=== PATIENT | male | born 1955 | race Caucasian/White ===

== ENCOUNTER 2019-06-19 21:32 | Observation (INO) ==
--- NOTE | 2019-06-19 21:40 | Emergency Department Note ---
Disposition Clinical Impression: Vertigo BPPV (benign paroxysmal positional vertigo) Qualifiers: Laterality: bilateral Qualified Code(s): H81.13 - Benign paroxysmal vertigo, bilateral Disposition: Admitted As Inpatient Instructions: Benign Paroxysmal Positional Vertigo (ED) Referrals: Crispin Fair MD [Primary Care Provider] - Time of Disposition: 00:55 General Adult HPI - General Stated complaint: dizziness Time Seen by Provider: 06/19/19 21:34 Source: patient Mode of arrival: private vehicle Limitations: no limitations Nursing Notes Reviewed: Yes Vital Signs Reviewed: Yes - History of Present Illness HPI Narrative: Patient is a 63-year-old male with a past medical history of arthritis presenting with a chief complaint of dizziness since this afternoon. The patient states 20 years ago, he had vertigo. He has not been on any current medications for vertigo. He states this afternoon, he stood up and went to ambulate when he all of a sudden felt dizzy. He states that the room is spinning. Moving his head to the right or left worsens the dizziness. He states when he lays down and closes his eyes, the dizziness improves. He states that the dizziness is progressively getting worse throughout the day. For the last several hours, he complains of nausea and several episodes of nonbilious nonbloody emesis. He states he feels like he cannot ambulate secondary to the dizziness. He denies any vision changes, headaches, chest pain, shortness of breath, abdominal pain, recent illnesses, unilateral weakness or numbness. - Related Data Home Medications Medication Instructions Recorded Confirmed Meloxicam [Mobic] 15 mg PO DAILY 06/19/19 06/19/19 Sertraline [Zoloft] 50 mg PO DAILY 06/19/19 06/19/19 Allergies Allergy/AdvReac Type Severity Reaction Status Date / Time No Known Allergies Allergy Verified 06/19/19 21:52 All systems ED: reviewed and negative except as stated. Review of Systems: As Per HPI Constitutional: Denies: fever, chills Eyes: Denies: vision change ENT ED: Denies: congestion Cardiovascular: Denies: chest pain, palpitations Respiratory: Denies: cough, dyspnea Gastrointestinal: Reports: nausea, vomiting. Denies: abdominal pain Neurological: Reports: vertigo. Denies: headache, weakness, numbness, paresthesias Past Medical History - Past Medical History Attestation: Yes The following information was validated with the patient. Source: patient Medical history: Reports: other (arthritis) Psychiatric history: Reports: no psych history - Social History Smoking Status: Never smoker Smokeless Tobacco Status: No Alcohol use: Reports: occasionally (once a week) Drug use: Reports: none Physical Exam - General Limitations: no limitations General appearance: alert, other (eyes closed, no aparent distress) - Head Head exam: atraumatic, normocephalic - Eye Eye exam: Present: normal appearance, PERRL, EOMI, other (nystagmus to the left, horizontal, no rotational or vertical nystagmus) - ENT ENT exam: normal exam, mucous membranes moist, TM's normal bilaterally - Neck Neck exam: Present: normal inspection, trachea midline - Chest Chest inspection: Present: normal inspection, symmetric chest wall rise - Respiratory Respiratory exam: Present: normal lung sounds bilaterally. Absent: respiratory distress, wheezes - Cardiovascular Cardiovascular exam: Present: regular rate, normal rhythm, normal heart sounds - Abdominal Exam Abdominal exam: Present: soft, Non-Tender. Absent: distention - Extremities Exam Extremities exam: Present: normal capillary refill. Absent: pedal edema, calf tenderness - Neurological Exam Neurological exam: Present: alert, oriented X3, CN II-XII intact. Absent: motor sensory deficit - Expanded Neurological Exam Speech: Present: fluid speech Cerebellar function: finger to nose: Normal, heel to perry: Normal Motor strength - LUE: 5/5 Motor strength - RUE: 5/5 Motor strength - LLE: 5/5 Motor strength - RLE: 5/5 Upper motor neuron exam: marcus neglect: Absent bilaterally, pronator drift: Absent bilaterally Sensory exam upper extremity: light touch: Normal Sensory exam lower extremity: light touch: Normal - Psychiatric Psychiatric exam: Present: normal affect, normal mood - Skin Skin exam: Present: warm, dry. Absent: diaphoresis, pallor Course Vital Signs Temperature 98.1 F 06/19/19 21:40 Pulse Rate 79 06/19/19 21:40 Respiratory Rate 16 06/19/19 21:40 Blood Pressure 175/107 06/19/19 21:40 O2 Sat by Pulse Oximetry 97 06/19/19 21:40 Temperature 98.1 F 06/19/19 21:40 Pulse Rate 64 06/19/19 23:49 Respiratory Rate 10 06/19/19 23:49 Blood Pressure 159/96 06/19/19 23:49 O2 Sat by Pulse Oximetry 98 06/19/19 23:49 Oxygen Delivery Oxygen Delivery Room Air Medical Decision Making - MDM Narrative Medical decision making narrative: Patient has history of vertigo. He is complaining of dizziness which he describes as the room is spinning that worsens when he sits up from a laying position, moving his head. It improves when he closes his eyes and lay still. He has nausea and vomiting. Nonfocal neurologic examination with NIHSS 0. He has horizontal nystagmus to the left, no rotation or vertical nystagmus. The dizziness worsened when turning his head to the right and left. We will give him Benadryl, Ativan, meclizine and Zofran, normal saline and reevaluate his symptoms. If his symptoms improve, we will ambulate the patient. Suspect vertigo/BPPV. 22:45 The patient was reevaluated. He states no improvement in the dizziness. We will try a scopolamine patch. At this time, we will evaluate for stroke workup and obtain CT head without contrast followed by CTA head and neck, CBC, BMP, troponin. 00:30 Imaging reviewed. The patient states the nausea is resolved but he is still h aving dizziness every time he opens up his eyes. No improvement with this. We will admit the patient for vertigo and he will likely need a head MRI. 00:[address] Collins who accepts admission - Medical Records Medical records reviewed: Yes I reviewed the patient's medical records. - Lab Data Lab results reviewed: Yes I reviewed the patient's lab results. Result diagrams: 06/19/19 22:05 06/19/19 22:05 Lab Results 06/19/19 06/19/19 06/19/19 Range/Units 22:05 22:05 22:05 WBC 6.6 (4.3-11.1) K/mcL RBC 5.08 (4.19-5.50) M/mcL Hgb 14.7 (12.9-16.9) g/dL Hct 44.2 (37.5-50.1) % MCV 87.0 (83.0-100.0) fL MCH 28.9 (28.0-33.3) pg MCHC 33.3 (31.6-35.5) g/dL RDW 13.0 (11.5-14.5) % Plt Count 186 (140-400) K/mcL MPV 9.2 L (9.4-12.4) fL PT 12.2 H (9.4-12.1) Seconds INR 1.1 APTT 28.7 (26.0-36.0) Seconds Sodium 140 (136-145) mEq/L Potassium 4.2 (3.5-5.1) mEq/L Chloride 108 H (98-107) mEq/L Carbon Dioxide 24 (23-29) mEq/L BUN 26 H (8-23) mg/dL Creatinine 1.02 (0.70-1.30) mg/dL Est GFR ( Amer) > 60 (> 60) Est GFR (Non-Af Amer) > 60 (> 60) BUN/Creatinine Ratio 25 (6-26) Glucose 121 H (70-105) mg/dL Calculated Osmolality 296 (280-300) Calcium 9.0 (8.6-10.3) mg/dL Troponin I < 0.03 (< 0.04) ng/mL - Radiology Data Radiology results reviewed: Yes I reviewed the patient's radiology results. Angiography CT 06/19/19 22:37 IMPRESSION: Unremarkable CTA of the head and neck. No acute intracranial abnormality. Specifically, no acute intracranial hemorrhage or mass effect. Asymmetric left upper lobe consolidation with cavitation and calcification could relate to chronic scarring. Underlying infectious or neoplastic process is not excluded and could be further evaluated with chest CT as warranted. D/ / Mike Best / Mike Best Interpreting Provider: Mike Best Neck CTA 06/19/19 22:37 IMPRESSION: Unremarkable CTA of the head and neck. No acute intracranial abnormality. Specifically, no acute intracranial hemorrhage or mass effect. Asymmetric left upper lobe consolidation with cavitation and calcification could relate to chronic scarring. Underlying infectious or neoplastic process is not excluded and could be further evaluated with chest CT as warranted. D/ / Mike Sessions / Mike Best Interpreting Provider: Mike Best - EKG Data EKG #1 EKG attestation: Yes I reviewed and interpreted this EKG. EKG results narrative: EKG obtained at 2151 shows sinus rhythm with heart rate 74, TX interval 229, QRS duration 109, QTC 436, prolonged TX interval, no evidence of secondary third- degree heart block, no ST elevation, no ST depression, Q waves in lead 3, no old EKG to compare to. NIH Stroke Scale - Level of Consciousness LOC: Alert - LOC Questions LOC Questions: Answers both correctly - LOC Commands LOC Commands: Performs both correctly - Best Gaze Best Gaze: Normal - Visual Visual: No visual loss - Facial Palsy Facial Palsy: Normal - Motor Arms Motor Arm-Left: No drift for 10 seconds Motor Arm-Right: No drift for 10 seconds - Motor Legs Motor Leg-Left: No drift for 5 seconds - Limb Ataxia Limb Ataxia: Normal, No Ataxia - Sensory Sensory: Normal - Best Language Best Language: No aphasia - Dysarthria Dysarthria: Normal - Extinction and Inattention Extinction and Inattention: Normal
[2019-06-19] MEDS ORDERED: Ondansetron 4 MG/2 ML VIAL IVP ONE (21:49)
[2019-06-19] MEDS ORDERED: *HR* LORazepam 0.5 MG TABLET PO ONE (21:51)
[2019-06-19] MEDS ORDERED: 0.9 % Sodium Chloride 1,000 ML IVC ONE (22:08)
[2019-06-19] MEDS ORDERED: Isovue-370 500 ML BOTTLE IVP ONE (22:37)
[2019-06-19 23:02] LABS: Hematocrit 44.2 % (37.5-50.1); Hemoglobin 14.7 g/dL (12.9-16.9); Mean Corpuscular HGB Conc 33.3 g/dL (31.6-35.5); Mean Corpuscular Hemoglobin 28.9 pg (28.0-33.3); Mean Platelet Volume 9.2 fL (9.4-12.4); Platelet Count 186 K/mcL (140-400); Red Blood Count 5.08 M/mcL (4.19-5.50); White Blood Count 6.6 K/mcL (4.3-11.1)
[2019-06-19 23:08] LABS: INR 1.1; Prothrombin Time 12.2 Seconds (9.4-12.1)
[2019-06-19 23:11] LABS: Activated Partial Thrombo Time 28.7 Seconds (26.0-36.0)
[2019-06-19 23:24] LABS: BUN/Creatinine Ratio 25 (6-26); Blood Urea Nitrogen 26 mg/dL (8-23); Carbon Dioxide 24 mEq/L (23-29); Chloride 108 mEq/L (98-107); Glucose 121 mg/dL (70-105); Osmolality,Calculated 296 (280-300); Potassium 4.2 mEq/L (3.5-5.1); Sodium 140 mEq/L (136-145); eGFR For African Americans > 60 (> 60); eGFR For Non-African Americans > 60 (> 60)
[2019-06-19 23:26] LABS: Troponin I < 0.03 ng/mL (< 0.04)
[2019-06-20] MEDS ORDERED: Aspirin 325 MG TABLET PO ONE (00:42)
--- NOTE | 2019-06-20 01:04 | Emergency Department Note ---
Disposition Clinical Impression: Vertigo BPPV (benign paroxysmal positional vertigo) Qualifiers: Laterality: bilateral Qualified Code(s): H81.13 - Benign paroxysmal vertigo, bilateral Disposition: Admitted As Inpatient Instructions: Benign Paroxysmal Positional Vertigo (ED) Referrals: Crispin Fair MD [Primary Care Provider] - Time of Disposition: 01:04 General Adult HPI - General Chief complaint: ED Dizziness Stated complaint: dizziness Time Seen by Provider: 06/19/19 21:34 Source: patient Mode of arrival: private vehicle Limitations: no limitations - History of Present Illness Pain Scale: 0 - Related Data Home Medications Medication Instructions Recorded Confirmed Meloxicam [Mobic] 15 mg PO DAILY 06/19/19 06/19/19 Sertraline [Zoloft] 50 mg PO DAILY 06/19/19 06/19/19 Allergies Allergy/AdvReac Type Severity Reaction Status Date / Time No Known Allergies Allergy Verified 06/19/19 21:52 Constitutional: Denies: fever, chills Eyes: Denies: vision change ENT ED: Denies: congestion Cardiovascular: Denies: chest pain, palpitations Respiratory: Denies: cough, dyspnea Gastrointestinal: Reports: nausea, vomiting. Denies: abdominal pain Neurological: Reports: vertigo. Denies: headache, weakness, numbness, paresthesias Past Medical History - Past Medical History Medical history: Reports: other (arthritis) Psychiatric history: Reports: no psych history - Social History Smoking Status: Never smoker Smokeless Tobacco Status: No Alcohol use: Reports: occasionally (once a week) Drug use: Reports: none Physical Exam - General Limitations: no limitations General appearance: alert, other (eyes closed, no aparent distress) Course Vital Signs Temperature 98.1 F 06/19/19 21:40 Pulse Rate 79 06/19/19 21:40 Respiratory Rate 16 06/19/19 21:40 Blood Pressure 175/107 06/19/19 21:40 O2 Sat by Pulse Oximetry 97 06/19/19 21:40 Temperature 98.1 F 06/19/19 21:40 Pulse Rate 70 06/20/19 01:00 Respiratory Rate 15 06/20/19 01:00 Blood Pressure 161/96 06/20/19 01:00 O2 Sat by Pulse Oximetry 99 06/20/19 01:00 Oxygen Delivery Oxygen Delivery Room Air Medical Decision Making - Lab Data Result diagrams: 06/19/19 22:05 08/17/19 22:05 Lab Results 06/19/19 06/19/19 06/19/19 Range/Units 22:05 22:05 22:05 WBC 6.6 (4.3-11.1) K/mcL RBC 5.08 (4.19-5.50) M/mcL Hgb 14.7 (12.9-16.9) g/dL Hct 44.2 (37.5-50.1) % MCV 87.0 (83.0-100.0) fL MCH 28.9 (28.0-33.3) pg MCHC 33.3 (31.6-35.5) g/dL RDW 13.0 (11.5-14.5) % Plt Count 186 (140-400) K/mcL MPV 9.2 L (9.4-12.4) fL PT 12.2 H (9.4-12.1) Seconds INR 1.1 APTT 28.7 (26.0-36.0) Seconds Sodium 140 (136-145) mEq/L Potassium 4.2 (3.5-5.1) mEq/L Chloride 108 H (98-107) mEq/L Carbon Dioxide 24 (23-29) mEq/L BUN 26 H (8-23) mg/dL Creatinine 1.02 (0.70-1.30) mg/dL Est GFR ( Amer) > 60 (> 60) Est GFR (Non-Af Amer) > 60 (> 60) BUN/Creatinine Ratio 25 (6-26) Glucose 121 H (70-105) mg/dL Calculated Osmolality 296 (280-300) Calcium 9.0 (8.6-10.3) mg/dL Troponin I < 0.03 (< 0.04) ng/mL Attestation Statement - Attestation Attestation: I reviewed the residents documentation and agree with the residents assessment and plan of care. I have personally had face to face time with the patient. (Brief History, Brief Exam, and MDM) I personally supervised and was present for the barry/critical portions of the following procedures completed by the resident: EKG 63 year old male presents to the eD with complaints of veritgo and had a history of vertigo from about 20 years ago and this is simliar. IT appears that even after mutliple therapy for his vertigo tonight the nausea has improved but the vertigo is still persisitant. He states as long as he closes his eyes it is somewhat berable but to open his eyes makes it that much worse. 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 Manuel will be admitted to medicine for rule out posterior STROKE. NIH 0.
[2019-06-20] MEDS ORDERED: Naloxone 0.4 MG/ML INJ IVP PRN (02:25)
--- NOTE | 2019-06-20 03:55 | Internal Med History&Physical ---
Date of Encounter: 06/20/19 Time of Encounter: 03:52 Internal Medicine - H&P: HPI Chief complaint: Dizziness History of present illness: Mr. Braun is a 63 year old male with a past medical history of arthritis and previous history of atrial fibrillation who presented to the ED with a chief complaint of dizziness. He states this afternoon, he stood up and went to ambulate when he all of a sudden felt dizzy described as the room spinning around him. Symptoms aggravated by turning his head to the right or left . He states when he lays down and closes his eyes, the dizziness improves. For the last several hours, he complains of nausea and several episodes of nonbilious nonbloody emesis. He reports difficulty with ambulation because of the vertigo. No reports of tinnitus or ear pain. He denies any vision changes, headaches, chest pain, shortness of breath, abdominal pain, recent illnesses, unilateral weakness or numbness. The patient states 20 years ago, he had vertigo. He has not been on any current medications for vertigo. EKG obtained at 2151 shows sinus rhythm with heart rate 74, LA interval 229, QRS duration 109, QTC 436, prolonged LA interval, no evidence of secondary third-degree heart block, no ST elevation, no ST depression, Q waves in lead 3, no old EKG to compare to. CTA of the head and neck was unremarkable. Patient was given Benadryl, Ativan, meclizine and Zofran, normal saline. A scopolamine patch was added Symptoms did not improve. Patient admitted for further evaluation. Past Med Surg Social Fam HX - Past Medical History Medical history: arthritis Additional medical history: hystoplasmosis Psychiatric history: no psych history - Past Surgical History Surgical History: orthopedic, other, tonsillectomy Additional surgical history: knee scope - left. right shoulder surgery - Social History Smoking Status: Never smoker Smokeless Tobacco Status: No Alcohol use: occasionally Drug use: none - Family History Grandmother Hx Family Endocrine Disorder: Yes (dm) Hx Family Neuromuscular Disorders: Yes (cva) Internal Medicine - H&P: Meds Meloxicam [Mobic] 15 mg PO DAILY 06/19/19 [History] Sertraline [Zoloft] 50 mg PO DAILY 06/19/19 [History] Calcium Carb/D3/Magnesium/Zinc [Graham Mag Zinc + D Tablet] 1 tab PO DAILY 06/20/19 [History] Allergy/AdvReac Type Severity Reaction Status Date / Time No Known Allergies Allergy Verified 06/19/19 21:52 All Systems PM: A 10-system review of systems was performed and is negative for pertinent fin dings except as documented above in the HPI. - Constitutional Constitutional: no chills, no fever(s), no night sweats - EENT Eyes: no change in vision, no discharge, no pain, no photophobia Ears: no ear discharge, no ear pain, no tinnitus Nose, mouth and throat: no dysphagia, no nasal discharge, no neck pain, no sore throat - Cardiovascular Cardiovascular ROS IM: no chest pain, no diaphoresis, no dyspnea, no lightheadedness, no palpitations, no syncope - Respiratory Respiratory: no cough, no dyspnea, no wheezing, no excessive phlegm production - Gastrointestinal Gastrointestinal: no abdominal pain, no diarrhea, no hematemesis, no hematochezia, no melena, no nausea, no vomiting - Musculoskeletal Musculoskeletal ROS IM: no numbness, no tingling - Integumentary Integumentary IM: no rash, no unusual bruising - Neurological Neurological ROS: no confusion, no convulsions, no focal weakness, no numbness, no tingling, no tremor(s) - Hematologic/Lymphatic Hematologic/Lymphatic: no easy bruising - Constitutional Vitals: Temp Pulse Resp BP Pulse Ox 97.9 F 57 16 157/80 97 06/20/19 03:18 06/20/19 03:18 06/20/19 03:18 06/20/19 03:18 06/20/19 03:18 Exam: General: Alert and oriented 3 Skin:Normal color, no rash, no lesions. HEENT:EOM, pupils equal, round and reactive. Vertical torsional nystagmus noted Cardiovascular:Normal S1 & S2, no rubs, murmurs or gallops. No JVD. Pulse regular. Lungs:Normal breath sounds, no wheezes or crackles. Abdomen:Soft, non-tender, no rigidity. Extremities:No deformity, no edema or tenderness, no joint swelling or clubbing. Neurological:Normal cognition and motor skills. Pulses:Carotid and radial pulses normal +2. Rest of the physical exam is non contributory Internal Med - H&P Results - Labs CBC & Chem 7: 06/19/19 22:05 06/19/19 22:05 Labs: Short CBC 06/19/19 Range/Units 22:05 WBC 6.6 (4.3-11.1) K/mcL Hgb 14.7 (12.9-16.9) g/dL Hct 44.2 (37.5-50.1) % Plt Count 186 (140-400) K/mcL BMP 06/19/19 22:05 Sodium 140 Potassium 4.2 Chloride 108 H Carbon Dioxide 24 BUN 26 H Creatinine 1.02 Glucose 121 H Calcium 9.0 Cardiac Enzymes 06/19/19 Range/Units 22:05 Troponin I < 0.03 (< 0.04) ng/mL - Impressions ITS Impressions Angiography CT 06/19/19 22:37 IMPRESSION: Unremarkable CTA of the head and neck. No acute intracranial abnormality. Specifically, no acute intracranial hemorrhage or mass effect. Asymmetric left upper lobe consolidation with cavitation and calcification could relate to chronic scarring. Underlying infectious or neoplastic process is not excluded and could be further evaluated with chest CT as warranted. D/ / Mike Best / Mike Best Interpreting Provider: Mike Best Neck CTA 06/19/19 22:37 IMPRESSION: Unremarkable CTA of the head and neck. No acute intracranial abnormality. Specifically, no acute intracranial hemorrhage or mass effect. Asymmetric left upper lobe consolidation with cavitation and calcification could relate to chronic scarring. Underlying infectious or neoplastic process is not excluded and could be further evaluated with chest CT as warranted. D/ / Mike Best / Mike Best Interpreting Provider: Mike Best - Assessment and Plan (1) Vertigo Current Visit: Yes Status: Acute Assessment and plan: Patient presenting with persistant Vertigo currently relieved only when he closes his eyes. Patient kept his eyes closed during most of the history and physical examination. Has notable vertical and torsional nystagmus on physical exam. Neurologic exam otherwise unremarkable. No notable findings on laboratory workup. CTA of the head and neck was unremarkable. Thus far has not responded to meclizine, Benadryl or scopolamine patch. Vannesa-Hallpike maneuver was attempted in the ED however, patient vomited during the maneuver and was not further attempted. -We will continue meclizine. -Antiemetics as needed -We will obtain echo and carotid duplex -MRI in the morning to rule out central etiology -Consider neurology consult if symptoms do not improve (2) Nausea & vomiting Current Visit: Yes Status: Acute Assessment and plan: Continue antiemetics as needed. Qualifiers: Vomiting Intractability: unspecified Qualified Code(s): R11.2 - Nausea with vomiting, unspecified (3) Arthritis Current Visit: Yes Status: Acute (4) DVT prophylaxis Current Visit: Yes Status: Acute Assessment and plan: Subcutaneous heparin - Time Spent With Patient Total time spent is greater than 50% in coordination of care (as documented) at patient's floor/unit and/or counseling patient:
[2019-06-20] MEDS ORDERED: Ondansetron 4 MG/2 ML VIAL IVP PRN (03:56)
[2019-06-20] MEDS: *HR* Heparin 5,000 UNIT/ML VIAL SQ SCH ×3 (05:58→21:28)
[2019-06-20] MEDS ORDERED: *HR* Promethazine 25 MG/ML VIAL IVP PRN (09:41)
[2019-06-20] MEDS ORDERED: *HR* Promethazine 25 MG/ML VIAL ONE (09:46)
--- NOTE | 2019-06-20 09:48 | Event Note ---
Date of Encounter: 06/20/19 Time of Encounter: 09:42 She was seen this morning by hospitalist services. Patient continues to experience vertigo as well as nausea and vomiting. During assessment patient is unable to open eyes or change positions without becoming extremely nauseated and vomiting. Noted on assessment patient does have horizontal nystagmus- complaining of burning epigastric to mid sternal pressure. Obtained EKG and reviewed with cardiology with no changes ordered stat troponin ordered stat MRI. Discussed treatment plan with the patient who verbalizes understanding continue close monitoring
--- NOTE | 2019-06-20 12:07 | Neurology - Consult Note ---
Date of Encounter: 06/20/19 Time of Encounter: 12:04 Assessment and Plan (1) Vertigo Current Visit: Yes Status: Acute This patient seemed to have an acute attack of vertigo predominantly nausea vomiting and significant worsening with the movement Likely has acute labyrinthitis versus positional vertigo'recommend MRI of the brain to exclude any posterior circulation infarct or vertebrobasilar insufficiency CVA has been negative for any critical stenosis In the meantime suggest IV fluid symptomatic treatment May continue him on baby aspirin Monitor her blood pressure and blood sugar keep it stable If MRI of the brain is negative perhaps he may need ENT consultation as well Discussed with the was present at the bedside (2) BPPV (benign paroxysmal positional vertigo) Current Visit: Yes Status: Acute Qualifiers: Laterality: unspecified laterality Qualified Code(s): H81.10 - Benign paroxysmal vertigo, unspecified ear History of Present Illness HPI: Mr. Braun is a 63 year old male with past medical history of Atriall fibrillation who admitted with significant dizziness and vertigo . Patient's symptoms are symptoms started yesterday when he stood up and went to ambulate when he all of a sudden felt dizzy described as the room spinning around him. Symptoms aggravated by turning his head to the right or left . He states when he lays down and closes his eyes, the dizziness improves. For the last several hours, he complains of nausea and several episodes of nonbilious nonbloody emesis. He reports difficulty with ambulation because of the vertigo. He denies any vision changes, headaches, chest pain, shortness of breath, abdominal pain, recent illnesses, unilateral weakness or numbness. The patient states 20 years ago, he had vertigo. He has not been on any current medications for vertigo. CTA of the head and neck was unremarkable. Patient was given Benadryl, Ativan, meclizine and Zofran, normal saline. A scopolamine patch was added Symptoms did not improve. Patient admitted for further evaluation he continued to be very dizzy which is predominantly positional in nature Past Med Surg Social Fam HX - Past Medical History Medical history: arthritis Additional medical history: hystoplasmosis Psychiatric history: no psych history - Past Surgical History Surgical History: orthopedic, other, tonsillectomy Additional surgical history: knee scope - left. right shoulder surgery - Social History Smoking Status: Never smoker Smokeless Tobacco Status: No Alcohol use: occasionally Drug use: none - Family History Grandmother Hx Family Endocrine Disorder: Yes (dm) Hx Family Neuromuscular Disorders: Yes (cva) Medications and Allergies Meloxicam [Mobic] 15 mg PO DAILY 06/19/19 [History] Sertraline [Zoloft] 50 mg PO DAILY 06/19/19 [History] Allergy/AdvReac Type Severity Reaction Status Date / Time No Known Allergies Allergy Verified 06/19/19 21:52 All Systems: The remainder of the systems were reviewed and are negative Physical Examination - Vital Signs Vital Signs: Initial Vital Signs Temp Pulse Resp BP Pulse Ox 98.1 F 79 16 175/107 97 06/19/19 21:40 06/19/19 21:40 06/19/19 21:40 06/19/19 21:40 06/19/19 21:40 - Exam Exam: Limited neurological examination due to severe dizziness and vertigo No focal motor weakness noted in particularly no evidence of any paralysis We will reevaluate the patient when he is clinically stable - Constitutional General appearance: comfortable Results - Laboratory Findings CBC and BMP: 06/19/19 22:05 06/19/19 22:05 Abnormal lab findings: Abnormal lab results MPV 9.2 fL (9.4-12.4) L 06/19/19 22:05 PT 12.2 Seconds (9.4-12.1) H 06/19/19 22:05 Chloride 108 mEq/L (98-107) H 06/19/19 22:05 BUN 26 mg/dL (8-23) H 06/19/19 22:05 Glucose 121 mg/dL (70-105) H 06/19/19 22:05 Consult Discharge Plan - Plan Referrals: Crispin Fair MD [Primary Care Provider] -
--- NOTE | 2019-06-20 12:44 | Electrocardiograph Report ---
[address] [address] Test Date: 2019-06-20 Pat Name: Crispin Braun Department: 113 Room: 3B Gender: M [employer]: : 1955 Requested By: Jeff Snider Order Number: [id number] Reading MD: Kimberly Godinez Measurements Intervals [place] Rate: 68 P: 55 LA: 228 QRS: 25 QRSD: 106 T: 35 QT: 404 QTc: 422 Interpretive Statements SINUS RHYTHM WITH FIRST DEGREE AV BLOCK Electronically Signed On 06-20-2019 12:43:25 EDT by Kimberly Godinez
[2019-06-20] MEDS: 0.9 % Sodium Chloride 1,000 ML IVC SCH ×2 (13:35→21:29)
[2019-06-20] MEDS: diazePAM 2 MG TABLET PO PRN ×2 (13:35→21:28)
[2019-06-20] MEDS ORDERED: *HR* HYDROcodone/Acet 5/325 mg TABLET PO PRN (17:50)
[2019-06-20] MEDS ORDERED: Acetaminophen 325 MG TABLET PO PRN (17:50)
[2019-06-21] MEDS: *HR* Heparin 5,000 UNIT/ML VIAL SQ SCH ×3 (06:02→21:25)
--- NOTE | 2019-06-21 06:27 | Electrocardiograph Report ---
[facility] Test Date: 2019-06-19 Pat Name: Crispin Braun Department: EXAM9 Room: 3B47 Gender: M Room Server: : 1955 Requested By: Sapna Sosa Order Number: [id number] Reading MD: Onel Siu Measurements Intervals [place] Rate: 74 P: 67 SC: 229 QRS: 76 QRSD: 109 T: 46 QT: 393 QTc: 436 Interpretive Statements Sinus rhythm Prolonged SC interval Electronically Signed On 06-21-2019 6:26:17 EDT by Onel Siu
[2019-06-21] MEDS ORDERED: Ibuprofen 600 MG TABLET PO PRN (07:43)
[2019-06-21] MEDS: 0.9 % Sodium Chloride 1,000 ML IVC SCH (08:18)
--- NOTE | 2019-06-21 09:55 | Internal Med Progress Note ---
Hospitalist Progress Note - Encounter Date of Encounter: 06/21/19 Time of Encounter: 09:45 - Subjective Interval History: Patient was seen and examined at bedside continues to experience vertigo he is unable to open his eyes or move his head without experiencing extreme nausea with vomiting. He states that his nausea has improved somewhat with IV fluids overnight. Discussed treatment plan with the patient which includes consult ENT and also discussed results of MRI. Patient verbalizes understanding of treatment plan. - Exam Vitals: Temp Pulse Resp BP Pulse Ox 98.1 F 61 16 177/93 97 06/21/19 07:08 06/21/19 07:08 06/21/19 07:08 06/21/19 07:08 06/21/19 07:08 Exam: General: Alert and oriented 3 Skin:Normal color, no rash, no lesions. HEENT:EOM, pupils equal, round and reactive. Vertical torsional nystagmus noted Cardiovascular:Normal S1 & S2, no rubs, murmurs or gallops. No JVD. Pulse regular. Lungs:Normal breath sounds, no wheezes or crackles. Abdomen:Soft, non-tender, no rigidity. Extremities:No deformity, no edema or tenderness, no joint swelling or clubbing. Neurological:Normal cognition and motor skills. Pulses:Carotid and radial pulses normal +2. Rest of the physical exam is non contributory - Assessment and Plan (1) Vertigo Current Visit: Yes Status: Acute Assessment and Plan: Patient presenting with persistant Vertigo currently relieved only when he closes his eyes. Patient kept his eyes closed during most of the history and physical examination. Has notable vertical and torsional nystagmus on physical exam. Neurologic exam otherwise unremarkable. No notable findings on laboratory workup. CTA of the head and neck was unremarkable. Thus far has not responded to meclizine, Benadryl or scopolamine patch. [place]-Hallpike maneuver was attempted in the ED however, patient vomited during the maneuver and was not further attempted. -We will continue meclizine. -Antiemetics as needed -Cardiac echo Impressions: LVEF 60-65%. Indeterminate diastolic function. Normal right ventricular structure and function. Mild-moderate aortic regurgitation by spectral Doppler. Mild tricuspid regurgitation. No pulmonary hypertension. Aortic root is dilated at 4.9 cm with effacement of the sinotubular junction. Carotid duplex are normal in appearance -MRI obtained and appears to be negative -Neurology consulted and appreciate recommendations-we will give IV fluids as well as valium -Consult to ENT recommending oral prednisone which we will order 60 mg daily (2) Arthritis Current Visit: Yes Status: Acute (3) Nausea & vomiting Current Visit: Yes Status: Acute Assessment and Plan: Continue antiemetics as needed. Monitor electrolytes (4) DVT prophylaxis Current Visit: Yes Status: Acute Assessment and Plan: Subcutaneous heparin - Time Spent with Patient Total time spent is greater than 50% in coordination of care (as documented) at patient's floor/unit and/or counseling patient: Internal Medicine: Result - Labs CBC & Chem 7: 06/19/19 22:05 06/19/19 22:05 Labs: Cardiac Enzymes 06/20/19 Range/Units 09:29 Troponin I < 0.03 (< 0.04) ng/mL - ABG Interpretation ABG results: PT/INR, D-dimer PT 12.2 Seconds (9.4-12.1) H 06/19/19 22:05 - Impressions Impressions Echocardiogram 06/20/19 04:16 Impressions: LVEF 60-65%. Indeterminate diastolic function. Normal right ventricular structure and function. Mild-moderate aortic regurgitation by spectral Doppler. Mild tricuspid regurgitation. No pulmonary hypertension. Aortic root is dilated at 4.9 cm with effacement of the sinotubular junction. Left Ventricular Wall Motion: Rest Echo Findings All wall segments showed normal motion. Findings: Study Quality * Technically adequate exam. ECG Findings * Normal sinus rhythm. Left Ventricle * LVEF 60-65%. * Indeterminate diastolic function. * Normal LV chamber size, wall thickness and function. Right Ventricle * Normal right ventricular structure and function. Left Atrium * Normal left atrial size. Right Atrium * Normal right atrial size. Aortic Valve * Trileaflet aortic valve. * No aortic stenosis. * Mild-moderate aortic regurgitation by spectral Doppler. Not well seen by Color Flow. Mitral Valve * Normal mitral valve structure. * No mitral stenosis. * Trace mitral regurgitation. Tricuspid Valve * Tricuspid valve not well visualized. * Mild tricuspid regurgitation. * Estimated RA pressure is 8 mmHg. * Estimated RVSP is 27 mmHg. * No pulmonary hypertension. Pulmonic Valve * Pulmonic valve is not well visualized. * No pulmonic stenosis. * No pulmonic regurgitation. Pulmonary Artery * Pulmonary artery not well visualized. Aorta * Aortic root is dilated at 4.9 cm with effacement of the sinotubular junction. Pericardium * There is no pericardial effusion present. Interatrial Septum * No evidence of PFO by color Doppler. IVC * The IVC is not dilated. * < 50% respiratory change. Brain MRI 06/20/19 09:25 IMPRESSION: No acute abnormality. D/ / Alfonso Galdamez MD / Alfonso Galdamez MD Interpreting Provider: Alfonso Galdamez MD Consult Discharge Plan - Plan Referrals: Crispin Fair MD [Primary Care Provider] - (3) Nausea & vomiting Qualifiers: Vomiting Intractability: unspecified Qualified Code(s): R11.2 - Nausea with vomiting, unspecified
[2019-06-21] MEDS: predniSONE 20 MG TABLET PO SCH (11:49)
--- NOTE | 2019-06-21 12:10 | Neurology Progress Note ---
<Ishaan Park J - Last Filed: 06/21/19 12:05> Date of Encounter: 06/21/19 Time of Encounter: 12:05 Assessment and Plan (1) Vertigo Current Visit: Yes Status: Acute Seen in f/u for vertigo Continues to have "room spinning" sensation made worse with head and neck manipulation; displays rightward horizontal nystagmus CVA ruled out with negative MRI brain; CTA head and neck unremarkable as well; specifically no flow limiting stenosis or aneurysm Recommending PO prednisone 60mg QDX5 days and Meclizine Rec PT/OT and Vestibular therapy Consider ENT consultation Neurology will sign off (2) BPPV (benign paroxysmal positional vertigo) Current Visit: Yes Status: Acute Qualifiers: Laterality: unspecified laterality Qualified Code(s): H81.10 - Benign paroxysmal vertigo, unspecified ear Subjective Principal diagnosis: Vertigo Interval history: Seen in f/u for vertigo. Continues to have dizziness today reporting a room spinning sensation made worse with head movement and position change. He reports a h/o vertigo approximately 20 years ago with similar sx. Discussed MRI and CTA findings. Patient reports that he is awaiting ENT consultation. Objective - Constitutional Vitals: Temp Pulse Resp BP Pulse Ox 98.3 F 60 16 178/97 96 06/21/19 11:40 06/21/19 11:40 06/21/19 11:40 06/21/19 11:40 06/21/19 11:40 Exam: Examination: General Examination: *CONSTITUTIONAL: Alert and oriented x3, with mild distress d/t dizziness *GENERAL APPEARANCE OF PATIENT appears healthy and well groomed otherwise *EYES: pupils equal, round, reactive to light and accommodation, conjunctiva clear without masses or ulcerations, fundi normal. *CARDIOVASCULAR no peripheral edema, distal temperature normal, dorsalis pedis pulses normal. Refer to vital signs * MUSCULOSKELETAL: *GAIT AND STATION: Deferred *ASSESSMENT OF MUSCLE STRENGTH IN THE UPPER AND LOWER EXTREMITIES bilateral deltoid, bicep, tricep, insurance loss assessor strength, hip flexors ,anterior tibialis, dorsoflexion of the foot 5/5 *MUSCLE TONE IN THE UPPER AND LOWER EXTREMITIES normal. No abnormal movements, fasciculations or atrophy identified. Neurological: *ORIENTATION to person, situation, time and place *LANGUAGE AND FUNCTION no significant aphasia or dysarthia was noted. *ATTENTION AND CONCENTRATION are normal *LANGUAGE FUNCTION no significant aphasia or dysarthia was noted. *FUND OF KNOWLEDGE aware of current events, past history, vocabulary *MENTAL attention span and concentration normal. *CN II optic fundi were normal, no papilledema noted. *CN III,IV, PERRLA extraocular eye movements were full, and no ptosis noted. Rightward horizontal nystagmus on exam, worse with head and neck manipulation *CN V shows normal sensation and jaw opens symmetrically. *CN VII shows normal facial movement symmetrically, upper and lower bilaterally. *CN VIII shows no significant hearing loss on exam *CN IX-Xpalate elevated symmetrically *CN XI normal strength in the sternocleidomastoid muscles, symmetrical shoulder shrugging. *CN XII tongue protruded in the midline, with normal strength and movement. *SENSORY EXAMINATION light touch intact *REFLEXES: deep tendon reflexes were normal and symmetrical , grade 2/4 diffusely, no pathological reflexes were noted. *CEREBELLAR TESTING normal finger to nose, heel/knee/perry *PAIN LEVEL 0/10 Results - Laboratory Findings CBC and BMP: 06/19/19 22:05 06/19/19 22:05 Abnormal lab findings: Abnormal lab results MPV 9.2 fL (9.4-12.4) L 06/19/19 22:05 PT 12.2 Seconds (9.4-12.1) H 06/19/19 22:05 Chloride 108 mEq/L (98-107) H 06/19/19 22:05 BUN 26 mg/dL (8-23) H 06/19/19 22:05 Glucose 121 mg/dL (70-105) H 06/19/19 22:05 Consult Discharge Plan - Plan Referrals: Crispin Fair MD [Primary Care Provider] - <Navid Granda I - Last Filed: 06/21/19 16:44> Date of Encounter: 06/21/19 Assessment and Plan (1) Vertigo Current Visit: Yes Status: Acute I have personally performed a face to face diagnostic evaluation, including HPI, EXAM, which is included in the Assesment and plan, which was discussed with [place]aan Park CNP, I agree with the above outlined documentation. Navid Granda MD. NeurologyI (2) BPPV (benign paroxysmal positional vertigo) Current Visit: Yes Status: Acute Qualifiers: Laterality: unspecified laterality Qualified Code(s): H81.10 - Benign paroxysmal vertigo, unspecified ear Objective - Constitutional Vitals: Temp Pulse Resp BP Pulse Ox 98.2 F 67 16 168/93 95 06/21/19 15:12 06/21/19 15:12 06/21/19 15:12 06/21/19 15:12 06/21/19 15:12 Results - Laboratory Findings CBC and BMP: 06/19/19 22:05 06/19/19 22:05 Abnormal lab findings: Abnormal lab results MPV 9.2 fL (9.4-12.4) L 06/19/19 22:05 PT 12.2 Seconds (9.4-12.1) H 06/19/19 22:05 Chloride 108 mEq/L (98-107) H 06/19/19 22:05 BUN 26 mg/dL (8-23) H 06/19/19 22:05 Glucose 121 mg/dL (70-105) H 06/19/19 22:05
--- NOTE | 2019-06-21 17:44 | ENT - Consult Note ---
Date of Encounter: 06/21/19 Time of Encounter: 17:41 Assessment and Plan (1) Vestibular neuronitis Current Visit: Yes Status: Acute Patient with acute episode of vertigo that has been continuous in nature and he does have nystagmus with lateral gaze. Patient with very severe symptoms at this point and maintained still with his eyes closed to help suppress any of his symptoms. This is common in vestibular neuritis when it acutely affects the patient. I would recommend symptomatic relief with Valium and also prednisone as previously discussed with the hospitalist that the [place] started. I do recommend continuing this for 7 days to help limit his symptoms and shorten the course. I did not perform an [place]-Hallpike today due to his acute symptoms then I do not want to make him feel worse with testing for BPPV. I do not believe the patient is suffering from BPPV due to his symptomatic history. Patient is not having episodes with turning but is been a continuous sensation of vertigo when the eyes are open at all. A can be exacerbated by turning the head but is not initiated by head turns. After patient's acute symptoms have improved would recommend he follow up as an outpatient to the office for vestibular testing. I would send the patient for vestibular therapy as an outpatient to help with symptomatic relief and for resolution of this remaining symptoms. Patient was discussed with the nurse practitioner on the floor that is caring for the patient. Again I do recommend if he does be discharged home to continue the prednisone 60 mg for a total of 7 days. Continue Valium 2-4 mg every 6 hours when necessary vertigo. Patient should only take this one feeling acutely vertiginous. Recommend patient follow up as an outpatient. Qualifiers: Laterality: unspecified laterality Qualified Code(s): H81.20 - Vestibular neuronitis, unspecified ear (2) Vertigo Current Visit: Yes Status: Acute (3) Elevated blood-pressure reading without diagnosis of hypertension Current Visit: Yes Status: Acute Patient's blood pressures remained elevated over the readings for today, I would recommend that the primary team keep a closer eye on his blood pressure and manage accordingly. Recommend further optimization of his blood pressure within the normal range. History of Present Illness Consult date: 06/21/19 Reason for ENT Consult: vertigo History of present illness: Patient is a 63-year-old male with acute onset vertigo for 3 days. 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 Patient also with associated nausea. Patient states he must stay very still and remain with his eyes closed otherwise he begins to spend. Spinning does not subside with the eyes open. Patient had an episode similar in nature over a decade ago that subsided after 2 days. Patient denies any head trauma. Patient denies any recent upper respiratory infection. Patient denies any tinnitus or change in hearing that is acute. Patient denies any roaring in the ears. Patient denies hearing any popping or cracking in the neck. Patient without any history of neck injury or strain. Patient did state that he had some pain in the neck yesterday which is slightly improved. Patient states his spinning is slightly improving with some of the medications he is received in the hospital. Past Med Surg Social Fam HX - Past Medical History Medical history: arthritis Additional medical history: hystoplasmosis Psychiatric history: no psych history - Past Surgical History Surgical History: orthopedic, other, tonsillectomy Additional surgical history: knee scope - left. right shoulder surgery - Social History Smoking Status: Never smoker Smokeless Tobacco Status: No Alcohol use: occasionally Drug use: none - Family History Grandmother Hx Family Endocrine Disorder: Yes (dm) Hx Family Neuromuscular Disorders: Yes (cva) Medications and Allergies Meloxicam [Mobic] 15 mg PO DAILY 06/19/19 [History] Sertraline [Zoloft] 50 mg PO DAILY 06/19/19 [History] Calcium Carb/D3/Magnesium/Zinc [Graham Mag Zinc + D Tablet] 1 tab PO DAILY 06/20/19 [History] Allergy/AdvReac Type Severity Reaction Status Date / Time No Known Allergies Allergy Verified 06/19/19 21:52 ENT - ROS - Constitutional Constitutional ROS: as per HPI, no daytime sleepiness, no fever(s) - EENT Nose, mouth and throat: neck pain, vertigo, no abnormal hearing, no headache(s) - Cardiovascular Cardiovascular ROS IM: no chest pain, no dyspnea - Respiratory no dyspnea, no hemoptysis - Gastrointestinal Gastrointestinal: nausea - Musculoskeletal Musculoskeletal ROS: neck pain - Neurological Neurological ROS: vertigo, no syncope, no weakness - Psychiatric Psychiatric general: no auditory hallucinations ENT Exam Initial Vital Signs Temp Pulse Resp BP Pulse Ox 98.1 F 79 16 175/107 97 06/19/19 21:40 06/19/19 21:40 06/19/19 21:40 06/19/19 21:40 06/19/19 21:40 - General physical appearance well developed, well nourished, other (Distress, nonmobile) - Eyes other (Horizontal nystagmus with lateral gaze, not fatiguing), PERRL, normal ocular movement - ENT normal pinna, normal nares, normal mucosa, no congestion, Other (Patient can hear finger rub bilaterally, TMs without perforation, middle ear well aerated without effusion, no otorrhea, mouth soft palate raises symmetrically tonsils surgically absent, tongue mobile and midline teeth in good repair, ) - Neck no masses, trachea midline, no lymphadectomy - Respiratory normal expansion, normal respiratory effort - Neurologic CN 2-12 grossly intact, normal coordination, normal sensation Exam Initial Vital Signs Temp Pulse Resp BP Pulse Ox 98.1 F 79 16 175/107 97 06/19/19 21:40 06/19/19 21:40 06/19/19 21:40 06/19/19 21:40 06/19/19 21:40 Results - Labs 06/19/19 22:05 06/19/19 22:05 Abnormal lab results MPV 9.2 fL (9.4-12.4) L 06/19/19 22:05 PT 12.2 Seconds (9.4-12.1) H 06/19/19 22:05 Chloride 108 mEq/L (98-107) H 06/19/19 22:05 BUN 26 mg/dL (8-23) H 06/19/19 22:05 Glucose 121 mg/dL (70-105) H 06/19/19 22:05 All other labs normal. Consult Discharge Plan - Plan Referrals: Crispin Fair MD [Primary Care Provider] -
[2019-06-21 18:30] LABS: BUN/Creatinine Ratio 16 (6-26); Blood Urea Nitrogen 16 mg/dL (8-23); Carbon Dioxide 23 mEq/L (23-29); Chloride 109 mEq/L (98-107); Glucose 159 mg/dL (70-105); Osmolality,Calculated 291 (280-300); Potassium 4.1 mEq/L (3.5-5.1); Sodium 138 mEq/L (136-145); eGFR For African Americans > 60 (> 60); eGFR For Non-African Americans > 60 (> 60)
[2019-06-21] MEDS: diazePAM 2 MG TABLET PO PRN (21:25)
[2019-06-22] MEDS: 0.9 % Sodium Chloride 1,000 ML IVC SCH (03:23)
[2019-06-22 03:47] LABS: BUN/Creatinine Ratio 17 (6-26); Blood Urea Nitrogen 16 mg/dL (8-23); Carbon Dioxide 24 mEq/L (23-29); Chloride 109 mEq/L (98-107); Glucose 110 mg/dL (70-105); Osmolality,Calculated 292 (280-300); Potassium 4.1 mEq/L (3.5-5.1); Sodium 140 mEq/L (136-145); eGFR For African Americans > 60 (> 60); eGFR For Non-African Americans > 60 (> 60)
[2019-06-22] MEDS: *HR* Heparin 5,000 UNIT/ML VIAL SQ SCH ×2 (05:56→14:26)
[2019-06-22] MEDS: predniSONE 20 MG TABLET PO SCH (09:05)
--- NOTE | 2019-06-22 14:51 | Discharge Summary ---
- NOTES TO OUTPATIENT PROVIDER Notes to Outpatient Provider: Patient will need to follow-up with ENT as outpatient. PT OT and vestibular therapy as outpatient. Patient will receive steroids 60 mg daily for 7 days value as needed for vertigo. Elevated blood pressure placed on lisinopril will need to monitor blood pressure and keep a log Date of Encounter: 06/22/19 Time of Encounter: 14:35 - Discharge Diagnosis (1) Vertigo Priority: Primary Status: Acute (2) Arthritis Priority: Secondary Status: Acute (3) Nausea & vomiting Priority: Secondary Status: Acute Qualifiers: Vomiting type: unspecified Vomiting Intractability: unspecified Qualified Code(s): R11.2 - Nausea with vomiting, unspecified Hospital course: Mr. Braun is a 63 year old male with history of atrial fibrillation and histoplasmosis admitted with significant dizziness and vertigo-symptoms started suddenly when he stood up to ambulate he felt dizzy and felt the room spinning around him. Senses were aggravated by turning his head to the right or left when he would lie down and closes eyes the dizziness would improve. Symptoms last several hours and he also experienced nausea and several episodes of nonviolence nonbloody emesis. She was unable to ambulate because of the vertigo. Denied any vision changes Hadix chest pain or short of breath abdominal pain. CT of head and neck unremarkable MRI brain negative carotid duplex within normal limits. Patient was given IV fluids evaluated by neurology who did not think that the symptoms were neurological but most likely labyrinthitis-ENT was consulted-vestibular neurontis patient placed on prednisone 60 mg daily which she will take for 7 days-continue with Valium as well as Zofran as needed. Patient did have elevated blood pressure during admission initiated on lisinopril advised patient to monitor blood pressure at home and keep a log. She will follow-up with ENT as outpatient as well as primary care provider patient was evaluated by PT OT , neurology and ENT are recommending vestibular therapy as outpatient. Patient states he much improved today's able to sit up without any difficulty and tolerating food. He is hemodynamically stable this time and ready for discharge. - Time Spent with Patient Total time spent providing and/or coordinating discharge services: - Discharge Medications Prescriptions: New Lisinopril [Zestril] 20 mg PO DAILY 14 Days #14 tablet predniSONE [PredniSONE] 60 mg PO DAILY 5 Days #15 tablet diazePAM [Valium] 2 mg PO TID PRN 5 Days #20 tablet PRN Reason: Vertigo Ondansetron ODT [Zofran ODT] 4 mg SL Q6HR PRN 5 Days #20 tab.rapdis PRN Reason: Nausea And Vomiting Continued Meloxicam [Mobic] 15 mg PO DAILY Sertraline [Zoloft] 50 mg PO DAILY Calcium Carb/D3/Magnesium/Zinc [Graham Mag Zinc-D Tablet] 1 tab PO DAILY Home Medications: Meloxicam [Mobic] 15 mg PO DAILY 06/19/19 [History] Sertraline [Zoloft] 50 mg PO DAILY 06/19/19 [History] Calcium Carb/D3/Magnesium/Zinc [Graham Mag Zinc-D Tablet] 1 tab PO DAILY 06/20/19 [History] Lisinopril [Zestril] 20 mg PO DAILY 14 Days #14 tablet 06/22/19 [Rx] Ondansetron ODT [Zofran ODT] 4 mg SL Q6HR PRN 5 Days #20 tab.rapdis 06/22/19 [Rx] diazePAM [Valium] 2 mg PO TID PRN 5 Days #20 tablet 06/22/19 [Rx] predniSONE [PredniSONE] 60 mg PO DAILY 5 Days #15 tablet 06/22/19 [Rx] Allergies/Adverse Reactions: Allergy/AdvReac Type Severity Reaction Status Date / Time No Known Allergies Allergy Verified 06/19/19 21:52 Date of admission: 06/20/19 01:10 Primary care physician: Crispin Fair MD Consults: 06/20/19 10:40 Consult to Neurology [CONS] Routine Consulting Provider: [facility] Reason for Consult: vertigo Time Notified: 10:41 Call Completed: Yes 06/21/19 09:33 Consult to ENT [CONS] Routine Consulting Provider: [facility] Reason for Consult: vertigo Time Notified: 09:34 Call Completed: Yes 06/21/19 17:27 Consult to Physical Therapy [CONS] Routine Comment: Evaluate, develop and implement POC Reason for Consult: vertigo-vestibular therapy Does patient have active BEDREST order?: No Is patient medically & hemodynamically stable?: Yes Patient assessed for mobility or mobilized this visit?: No Discharging clinician: Katelynn Azul Anticipated date of discharge: 06/22/19 - Constitutional Vitals: Temp Pulse Resp BP Pulse Ox 97.9 F 95 17 173/95 99 06/22/19 07:39 06/22/19 07:39 06/22/19 07:39 06/22/19 07:39 06/22/19 07:39 Exam: Skin: Free of rash and discoloration. Eyes: Sclera is white. There is no discharge from eyes. ENMT: Oral/pharyngeal mucosa is normal in appearance. There is no discharge from nose or ears. Respiratory: Normal breath sounds with no crackles and wheezes bilaterally. CV: Heart is regular with no gallop or murmur. GI: Abdomen is flat and soft with no palpable mass or visceromegaly. : There is no tenderness in patient's flanks bilaterally. Neuro exam: He has good strength in upper and lower extremities. He has normal eye movements. Psychiatric: He has normal affect. His thought process is appropriate to the situation. - Patient Status Disposition: Home, Self-Care Functional capacity at discharge: independent ambulation Overall status at discharge: patient is back to baseline - Discharge Instructions Follow Up With: Crispin Fair MD [Primary Care Provider] - 06/25/19 2:15 pm Virgen Sloan DO [Non-Partnered Physician] - 07/07/19 1:15 pm Additional Instructions: Keep a daily log of your blood pressure and take it with you to your PCP appointment - Diet and Activity Activity: increase activity as tolerated Diet: advance to your usual diet
[2019-06-22 15:20] VITALS: BP 152/85
[2019-06-23] MEDS ORDERED: Lisinopril 20 MG TABLET PO SCH (09:00)
[2019-06-23] MEDS ORDERED: Lisinopril 20 MG TABLET PO ONE (13:39)
== END 2019-06-22 16:45 | disposition home or self-care (01) ==
LOC: 3BNU 21:32 → EMEROOARM 21:32 → 3BNU 06-20 01:35
PROVIDERS: ADMIT Internal Medicine Nephrology; ATTEND Internal Medicine Nephrology

== ENCOUNTER 2019-08-25 14:51 | Inpatient (IN) ==
[2019-08-25 15:33] LABS: Hematocrit 46.6 % (37.5-50.1); Hemoglobin 16.8 g/dL (12.9-16.9); Mean Corpuscular HGB Conc 36.1 g/dL (31.6-35.5); Mean Corpuscular Hemoglobin 30.1 pg (28.0-33.3); Mean Corpuscular Volume 83.5 fL (83.0-100.0); Mean Platelet Volume 9.5 fL (9.4-12.4); Platelet Count 219 K/mcL (140-400); Red Blood Count 5.58 M/mcL (4.19-5.50); Red Cell Distribution Width 13.1 % (11.5-14.5); White Blood Count 6.3 K/mcL (4.3-11.1)
[2019-08-25 15:42] LABS: INR 0.9; Prothrombin Time 9.8 Seconds (9.4-12.1)
[2019-08-25 16:16] LABS: Troponin I < 0.03 ng/mL (< 0.04)
[2019-08-25 17:04] LABS: BUN/Creatinine Ratio 20 (6-26); Blood Urea Nitrogen 19 mg/dL (8-23); Carbon Dioxide 24 mEq/L (23-29); Chloride 102 mEq/L (98-107); Glucose 124 mg/dL (70-105); Osmolality,Calculated 288 (280-300); Potassium 4.1 mEq/L (3.5-5.1); Sodium 137 mEq/L (136-145); eGFR For African Americans > 60 (> 60); eGFR For Non-African Americans > 60 (> 60)
[2019-08-25] MEDS ORDERED: Naloxone 0.4 MG/ML INJ IVP PRN (17:22)
[2019-08-25] MEDS ORDERED: Ondansetron 4 MG/2 ML VIAL IVP PRN (17:22)
[2019-08-26 02:03] LABS: Chol/HDL Ratio 4.7 (0-4.9)
[2019-08-26 07:14] VITALS: BP 150/90
[2019-08-26 08:56] LABS: Estimated Average Glucose 117 mg/dl
[2019-08-26] MEDS ORDERED: Aspirin Enteric Coated 81 MG Tablet PO SCH (09:00)
== END 2019-08-26 15:40 | disposition home or self-care (01) | DRG 66 ==
LOC: EMEROOARM 14:51 → 2NENU 14:51 → SUATTDRO 18:40 → 2NENU 20:31
PROVIDERS: ADMIT Student in an Organized Health Care Education/Training Program; ATTEND Internal Medicine